=== PATIENT | female | born 1960 | race American Indian/Alaskan Native ===

== ENCOUNTER 2019-10-19 11:32 | Emergency (ER) | payer MEDICAID ==
[~2019-10-19] VITALS: Ht 160 cm; Wt 57.2 kg
--- NOTE | 2019-10-19 11:45 | NUR ---
59 Y/O F BIBA, PT HAD A SYNCOPE EPISODE, FOUND ON THE FLOOR IN THE MENS RESTROOM AT HER APARTMENT COMPLEX. PT STATES RT FOOT AND RT HAND ARE HURTING, 3/10. RT FOOT AND HAND HAVE NO ABRASIONS, REDNESS, SWELLING. PT ABLE TO MOVE ALL FINGERS, TOES WITHOUT PAIN, CAP REFILLL LESS THAN 3. PT STATES SHE FELT FAINT USING THE RESTROOM, GOT UP TO LEAVE, AND DOES NOT REMEMBER ANYTHING UNTIL SHE CAME TO ON THE RESTROOM FLOOR. PT VS STABLE. BED LOWERED, SIDE RAILS X2 IN PLACE. NKA
[2019-10-19 11:46] VITALS: BP 97/40
--- NOTE | 2019-10-19 11:49 | NUR ---
EKG AT BEDSIDE.
--- NOTE | 2019-10-19 11:49 | NUR ---
LABS BEING DRAWN AT BEDSIDE.
[2019-10-19 12:00] LABS: BASOPHILS % (AUTO) 0.8 % (0.0-2.0); EOSINOPHILS # (AUTO) 0.2 K/uL (0-0.4); EOSINOPHILS % (AUTO) 4.3 % (0.0-4.0); HEMATOCRIT 28.4 % (36-48); HEMOGLOBIN 9.5 g/dL (12.0-16.0); LYMPHOCYTES # (AUTO) 1.1 K/uL (2.5-16.5); MEAN CORPUSCULAR HEMOGLOBIN 30 pg (27-31); MEAN CORPUSCULAR HGB CONC 33 g/dL (33-37); MEAN CORPUSCULAR VOLUME 89.9 fL (80-94); MONOCYTES # (AUTO) 0.6 K/uL (0.8-1.0); MONOCYTES % (AUTO) 13.5 % (1.7-9.3); NEUTROPHILS # (AUTO) 2.3 K/uL (1.8-7.7); NEUTROPHILS % (AUTO) 55.4 % (42.2-75.2); PLATELET COUNT (AUTO) 165 K/uL (140-450); RED BLOOD CELL COUNT(AUTO) 3.15 MIL/uL (4.20-5.40); RED CELL DISTRIBUTION WIDTH 14.5 % (11.6-13.7); WHITE BLOOD COUNT (AUTO) 4.2 K/uL (4.8-10.8)
--- NOTE | 2019-10-19 12:05 | NUR ---
PT TO CT BY WHEELCHAIR.
[2019-10-19 12:13] LABS: ANION GAP 12.7 (8-16); CARBON DIOXIDE 30.6 mmol/L (21-32); CREATININE 3.2 mg/dL (0.6-1.3); POTASSIUM 4.3 mmol/L (3.5-5.1)
[2019-10-19] MEDS ORDERED: NACL 0.9% 1,000 ML IV ONE (12:20)
[2019-10-19 12:25] LABS: TOTAL BILIRUBIN 0.5 mg/dL (0.0-1.0)
--- NOTE | 2019-10-19 12:31 | NUR ---
X-RAY AT BEDSIDE.
--- NOTE | 2019-10-19 12:38 | NUR ---
PT IV RUNNING WITHOUT DIFICULTY, SITE CLEAN, DRY, NO REDNESS. PT ON 2 L O2 NC. PT STATES SHE IS ON 2 L AT HOME, UNLESS WALKING AROUND, 3 L. PT WAS NOT WEARING 02 WHEN SHE FAINTED. VS STABLE.
--- NOTE | 2019-10-19 14:37 | NUR ---
PER DR. LUNA, OKAY TO D/C WITHOUT OBTAINING URINE SAMPLE. NOTIFIED PT THAT SHE IS READY FOR D/C, PT TOLD FAMILY TO COME PICK HER UP.
[2019-10-19 15:31] VITALS: BP 112/40
--- NOTE | 2019-10-19 15:31 | NUR ---
Patient discharged with v/s stable. Written and verbal after care instructions given and explained. Patient verbalized understanding. Ambulatory with steady gait. All questions addressed prior to discharge. Advised to follow up with PMD.
== END 2019-10-19 15:31 | disposition home or self-care (01) ==
LOC: MED 11:32
DX: R55 Syncope and collapse (principal); D64.9 Anemia, unspecified; N18.9 Chronic kidney disease, unspecified; M79.671 Pain in right foot; Z94.4 Liver transplant status
CPT/HCPCS: 36415; 70450; 71045; 73630; 80053; 83880; 84484; 85025; 93005; 96360; 96361; 99284; J7030; Q0092